=== PATIENT | female | born 1935 | race Caucasian/White ===

== ENCOUNTER 2022-01-11 09:38 | Inpatient (IN) | payer OTHER, BC ==
[2022-01-11] VITALS (7 sets, daily range): BP systolic 98–127; BP diastolic 61–74
[~2022-01-11] VITALS: Ht 162.6 cm; Wt 70.8 kg
--- NOTE | 2022-01-11 09:41 | NUR ---
FARHEEN CARLSON, VIA GURPORTER, TO BED 01.
--- NOTE | 2022-01-11 09:55 | NUR ---
86 y/o Female BIBA from s/p concerned neighbors found her on floor. Unknown last well time. Per amb, pt was subjectively hot and altered. Pt baseline is GCS 15, AOX4. Pt is currently non-verbal responsive to painful stimuli. Resp even and labored. Lung sounds C/D bilat. Abd soft and non-tender. + BS heard x 4. Rectal temp of [address] Diaz with cooling measures initiated. Throat noted with edema, soft to touch. Pmhx: hypothyroid Home meds: prednisone, levothyroxine, methotrexate Unknown allergies
[2022-01-11] MEDS ORDERED: ACETAMINOPHEN 325 MG SUPP RC ONE (09:59)
[2022-01-11] MEDS ORDERED: ACETAMINOPHEN 120 MG SUPP RC ONE (10:00)
[2022-01-11] MEDS ORDERED: NACL 0.9% 1,000 ML IV SCH (10:00)
[2022-01-11] MEDS ORDERED: LORazepam 2 MG/ML VIAL ONE (10:03)
[2022-01-11] MEDS ORDERED: LORazepam 2 MG/ML VIAL IVP ONE (10:05)
[2022-01-11 11:23] LABS: BASOPHILS % (AUTO) 0.2 % (0.0-2.0); HEMATOCRIT 42.5 % (36-48); HEMOGLOBIN 13.9 g/dL (12.0-16.0); LYMPHOCYTES # (AUTO) 0.4 K/uL (2.5-16.5); LYMPHOCYTES % (AUTO) 3.2 % (20.5-51.1); MEAN CORPUSCULAR HEMOGLOBIN 31 pg (27-31); MEAN CORPUSCULAR HGB CONC 33 g/dL (33-37); MEAN CORPUSCULAR VOLUME 93.3 fL (80-94); MONOCYTES # (AUTO) 0.8 K/uL (0.8-1.0); MONOCYTES % (AUTO) 6.2 % (1.7-9.3); NEUTROPHILS # (AUTO) 11.8 K/uL (1.8-7.7); NEUTROPHILS % (AUTO) 90.4 % (42.2-75.2); PLATELET COUNT (AUTO) 198 K/uL (140-450); RED BLOOD CELL COUNT(AUTO) 4.55 MIL/uL (4.20-5.40); RED CELL DISTRIBUTION WIDTH 14.3 % (11.6-13.7)
[2022-01-11] MEDS ORDERED: NACL 0.9% 1,000 ML IV ONE ×2 (11:35→12:10)
--- NOTE | 2022-01-11 11:37 | NUR ---
Dr Daiz made aware of B/P at this time. Pt remains in aFib in the 120s
[2022-01-11 11:38] LABS: PROTHROMBIN TIME 12.6 secs (10.8-13.4)
[2022-01-11] MEDS ORDERED: PIPERACILLIN/TAZOBACTAM 3.375 GM in DEXTROSE 5% 50 ML IV ONE (11:40)
[2022-01-11] MEDS ORDERED: PIPERACILLIN/TAZOBACTAM 3.375 GM VIAL IV ONE (11:41)
[2022-01-11 11:45] LABS: ALBUMIN 3.1 g/dL (3.4-5.0); ANION GAP 19.1 (8-16); ASPARTATE AMINOTRANSFERASE 59 U/L (15-37); CARBON DIOXIDE 22.5 mmol/L (21-32); CHLORIDE 107 mmol/L (98-107); CREATININE 1.2 mg/dL (0.6-1.3); GLUCOSE 106 mg/dL (74-106); POTASSIUM 3.6 mmol/L (3.5-5.1); SODIUM SERUM 145 mmol/L (136-145); TOTAL BILIRUBIN 0.9 mg/dL (0.0-1.0); UREA NITROGEN, BLOOD 21 mg/dL (7-18)
[2022-01-11] MEDS ORDERED: NOREPINEPHRINE 4 MG/4 ML VIAL IV ONE (12:05)
[2022-01-11] MEDS ORDERED: NOREPINEPHRINE 4 MG in DEXTROSE 5% 250 ML IV ONE (12:10)
[2022-01-11 12:39] LABS: APPEARANCE,URINE CLEAR (CLEAR); BILIRUBIN,URINE NEGATIVE (NEGATIVE); BLOOD, URINE 2+ (NEGATIVE); COLOR,URINE YELLOW (YELLOW); LEUKOCYTE ESTERASE ,URINE NEGATIVE (NEGATIVE); NITRITE, URINE NEGATIVE (NEGATIVE); UGLUCOSE NEGATIVE (NEGATIVE)
[2022-01-11 13:03] LABS: WBC,URINE 0-5 /HPF (0-5)
[2022-01-11] MEDS ORDERED: VITAMIN C PO (13:13)
[2022-01-11] MEDS ORDERED: LUTE1CAP5 PO (13:13)
[2022-01-11] MEDS ORDERED: MULTIVITAMIN PO (13:13)
[2022-01-11] MEDS ORDERED: TURMERIC PO (13:13)
[2022-01-11] MEDS ORDERED: LEVO0.155 PO (13:13)
[2022-01-11] MEDS ORDERED: METH10TA3 PO (13:13)
[2022-01-11] MEDS ORDERED: VITA1CAP42 PO (13:13)
[2022-01-11] MEDS ORDERED: PRED5TAB7 PO (13:13)
[2022-01-11] MEDS ORDERED: LIOT5TAB4 PO (13:13)
[2022-01-11] MEDS ORDERED: FOLIC ACID PO (13:13)
[2022-01-11] MEDS ORDERED: ELA50 PO (13:13)
[2022-01-11] MEDS ORDERED: HYDR200T5 PO (13:13)
[2022-01-11] MEDS ORDERED: [UNRECOGNIZED DRUG - OTHER] (13:13)
[2022-01-11] MEDS ORDERED: ASPI-1749 PO (13:13)
[2022-01-11] MEDS: NACL 0.9% 1,000 ML IV SCH (13:30)
--- NOTE | 2022-01-11 13:56 | NUR ---
Patient will be admitted to care of Dr Green. Admited to ICU. Will go to room 2. Belongings list completed. Report given to NOEMI Luciano.
[2022-01-11 14:15] LABS: MAGNESIUM 1.1 mg/dL (1.8-2.4); PHOSPHORUS 2.6 mg/dL (2.5-4.9)
[2022-01-11 14:17] LABS: PROTHROMBIN TIME 13.1 secs (10.8-13.4)
--- NOTE | 2022-01-11 14:20 | NUR ---
RECEIVED FROM ER IN [place] PT. IS SLEEPING BUT WAKE UP AND FOLLOW COMMAND WHEN CALLEDIV FLUID HAS TLC RT FEMORAL INFUSING LEVO AT 5MCG/MIN.SKIN DRY WARM COLOR PALE , MOVING ALL EXTREMITIES SLOWLY .NAVARRO CATH DRAIN CLEAR CARK MARY BETH URINR.
--- NOTE | 2022-01-11 14:36 | NUR ---
LAB CALL [id number] NOTIFIED DR CRUZ, ORDER RECEIVED.
[2022-01-11] MEDS ORDERED: LOVENOX 1MG/KG Q12H SUBQ SCH (15:20)
[2022-01-11] MEDS ORDERED: CLINICAL MONITORING MC PRN (15:25)
[2022-01-11] MEDS ORDERED: ENOXAPARIN 80 MG/0.8 ML SYR SUBQ SCH (15:30)
--- NOTE | 2022-01-11 15:30 | NUR ---
SEEN BY DR. CRUZ , ORDER RECEIVED,
--- NOTE | 2022-01-11 16:00 | NUR ---
SLEEING MOST OR THE TIME CONTINUE ON LEVOPHED IV DRIP 3MCG/MIN.
--- NOTE | 2022-01-11 19:12 | NUR ---
RECEIVED REPORT FROM DAY SHIFT RN MARISA. PT. WITH ALTERED LEVEL OF CONSCIOUSNESS. ON NASAL CANULA 2L. IV TO RIGHT FEMORAL CENTRAL LINE, PATENT AND INTACT INFUSING LEVOPHED AT 3 MCG/MIN AND NS AT 100 ML/HR. NAVARRO CATHETER DRAINING CLEAR YELLOW URINE. SKIN INTACT EXCEPT FOR BRUISES TO BILATERAL UPPER EXTREMITIES. PT. BEDLOCK AND PLACED IN COMFORTABLE POSITION. NO S/S OF PAIN. WILL CONT. TO MONITOR.
[2022-01-11] MEDS ORDERED: NOREPINEPHRINE 4 MG in DEXTROSE 5% 250 ML IV PRN (19:20)
--- NOTE | 2022-01-11 19:20 | NUR ---
REPORT GIVE TO LAURA FRANKLIN.
[2022-01-11] MEDS: PIPERACILLIN/TAZOBACTAM 3.375 GM in DEXTROSE 5% 50 ML IV SCH (20:51)
--- NOTE | 2022-01-11 21:45 | NUR ---
ENDORSED CARE AND REPORT GIVEN TO NOEMI SOSA FOR CONTINUITY OF CARE.
--- NOTE | 2022-01-11 21:45 | NUR ---
Assumed pt care report received from Jessika FRANKLIN.
--- NOTE | 2022-01-11 22:00 | NUR ---
On pt assessment, she was awake alert follows command answered all questions coherently oriented x3 pt's orientation to the unit immediate environment, she was not aware that she is addmited to the hospital also mentioned that she might have passed out. Education on care plan, she agreed and appreciates. Vitals signs stable on levophed drip titrated down to 1mcg/min afebrile, denies pain still AFIB on the monitor controlled rate in 70's O2 sat 100% on 2lnc. She moves all extremities to resistance but weaker in low extremities and stiffness as she said, assist with repositioning in bed HOB 30 degrees. IV site right groin dry and intact,and agrawal to gravity adequate urine output. PT is a fall risk bed rails up x2, bed in low position close to the nursing station, call light at reach will contnue q1 hour check fo pt's safety.
[2022-01-12] VITALS (23 sets, daily range): BP systolic 81–146; BP diastolic 40–84
[2022-01-12] MEDS: NACL 0.9% 1,000 ML IV SCH (01:29)
[2022-01-12 05:48] LABS: ANION GAP 12.4 (8-16); CARBON DIOXIDE 28.4 mmol/L (21-32); CHLORIDE 110 mmol/L (98-107); CREATININE 0.7 mg/dL (0.6-1.3); GLUCOSE 81 mg/dL (74-106); POTASSIUM 3.8 mmol/L (3.5-5.1); SODIUM SERUM 147 mmol/L (136-145); UREA NITROGEN, BLOOD 19 mg/dL (7-18)
[2022-01-12] MEDS: PIPERACILLIN/TAZOBACTAM 3.375 GM in DEXTROSE 5% 50 ML IV SCH ×3 (06:02→21:05)
--- NOTE | 2022-01-12 06:31 | NUR ---
As at this time pt awake alert worried about her appointment with her Rheumatoid artrthis doctor ongoing support to alleviates anxiety, passed swallow eval at the bedside ate Jello drank water no prblem encountered even ask if she is going to get food as ahe asked ARE THEY GOING TO FEED ME' order placed in for cardiac diet 2gm low sodium. All through the shift tolerated all treatments and care no problem vitals signs stable denies pain
--- NOTE | 2022-01-12 07:30 | NUR ---
SEEN AND EXAMINED BY DR CRUZ. ORDERS RECEIVED.
--- NOTE | 2022-01-12 07:40 | NUR ---
Change of shift report given to Tracy RN at the bedside for continuity of care as at this time pt awake alert vitals signs stable
--- NOTE | 2022-01-12 07:41 | NUR ---
RECEIVED BEDSIDE REPORT FROM SHEILA BELTRAN RN FOR CONTINUITY OF CARE. PT LYING IN THE BED, AAOX2, KARINRANNIE. ON 2L NC. FIRST DEGREE WITH PACS ON BEDSIDE MONITOR. R FEMORAL CENTRAL LINE IN PLACE INFUSING LEVOPHED AT 1 MCG/MIN AND NS AT 100 ML/H. RAC 18G IN PLACE. LAC 18G IN PLACE, AND LFA 20G IN PLACE. BOWEL SOUNDS ACTIVE. LAST BM MONDAY. FC TO GRAVITY, DRAINING CLEAR YELLOW URINE. MODERATE WEAKNESS. SKIN INTACT. W BRUISES TO BLE Addendum: 01/12/22 at 1134 by Jesi Leblacn RN ON STANDARD ISOLATION. CALL LIGHT WITHIN REACH. SAFETY PRECAUTIONS MET. INITIAL ASSESSMENT COMPLETE, WILL CONTINUE TO CLOSELY MONITOR.
[2022-01-12 07:49] LABS: BASOPHILS % (AUTO) 0.4 % (0.0-2.0); HEMATOCRIT 41.8 % (36-48); HEMOGLOBIN 13.6 g/dL (12.0-16.0); LYMPHOCYTES # (AUTO) 1.5 K/uL (2.5-16.5); LYMPHOCYTES % (AUTO) 14.1 % (20.5-51.1); MEAN CORPUSCULAR HEMOGLOBIN 32 pg (27-31); MEAN CORPUSCULAR HGB CONC 33 g/dL (33-37); MEAN CORPUSCULAR VOLUME 96.6 fL (80-94); MONOCYTES # (AUTO) 1.5 K/uL (0.8-1.0); MONOCYTES % (AUTO) 13.3 % (1.7-9.3); NEUTROPHILS # (AUTO) 7.9 K/uL (1.8-7.7); NEUTROPHILS % (AUTO) 72.2 % (42.2-75.2); PLATELET COUNT (AUTO) 116 K/uL (140-450); RED BLOOD CELL COUNT(AUTO) 4.33 MIL/uL (4.20-5.40); RED CELL DISTRIBUTION WIDTH 14.9 % (11.6-13.7); WHITE BLOOD COUNT (AUTO) 10.9 K/uL (4.8-10.8)
--- NOTE | 2022-01-12 08:00 | NUR ---
PT CAREGIVER, CORTEZ ENGEL, CALLED, UPDATED REGARDING PT CONDITION, ALL QUESTIONS ANSWERED. PT WANTS TO SPEAK WITH HER. UNIT MOBILE PHONE NOT FUNCTIONING AT THIS TIME. ENDORSED WHY WE ARE UNABLE TO USE MOBILE PHONE. VERBALIZED UNDERSTANDING.
[2022-01-12] MEDS ORDERED: predniSONE 20 MG TAB PO SCH (08:08)
--- NOTE | 2022-01-12 08:09 | NUR ---
PATIENT HAS BEEN SCREENED AND CATEGORIZED HIGH NUTRITION RISK. PATIENT WILL BE SEEN WITHIN 1-2 DAYS OF ADMISSION. DENNIS ONEAL RD
[2022-01-12] MEDS ORDERED: LEVOTHYROXINE 0.075 MG TAB PO SCH (08:10)
--- NOTE | 2022-01-12 08:20 | NUR ---
DR CHAIM ANGEL. Addendum: 01/12/22 at 1435 by Jesi Leblanc RN wrong time disregard
[2022-01-12] MEDS ORDERED: ENOXAPARIN 80 MG/0.8 ML SYR SUBQ SCH (09:00)
[2022-01-12] MEDS: METHYLPHENIDATE 10 MG TAB PO SCH (09:26)
[2022-01-12] MEDS: PANTOPRAZOLE 40 MG INJ VIAL IVP SCH (09:26)
[2022-01-12] MEDS: ASPIRIN 81 MG TAB.CHEW PO SCH (09:26)
[2022-01-12] MEDS: HYDROXYCHLOROQUINE 200 MG TAB PO SCH ×2 (09:26→20:59)
[2022-01-12] MEDS: ENOXAPARIN 80 MG/0.8 ML SYR SUBQ SCH ×2 (09:28→21:00)
--- NOTE | 2022-01-12 09:30 | NUR ---
PT EATING BREAKFAST, FINISHED 75%. SCHEDULED MEDS ADMINISTERED ORDERED. NADR, TOLERATED WELL. WILL CONTINUE TO CLOSELY MONITOR.
--- NOTE | 2022-01-12 12:15 | NUR ---
DR RUCKER ROUNDING AT BEDSIDE. NO NEW ORDERS.
[2022-01-12] MEDS: HYDROCORTISONE NA SUCC 100 MG/2 ML VIAL IV SCH ×2 (13:24→20:59)
--- NOTE | 2022-01-12 13:40 | NUR ---
WOUND CARE EVALUATION NOTES: REASON FOR EVALUATION: RIGHT BIG TOE WOUND WOUND ASSESSMENT COMPLETED ON THIS 86 Y/O FEMALE ADMITTED TO ICU FOR SEPTIC SHOCK. PAST MEDICAL HISTORY INCLUDES RH ARTHRITIS, HYPOTHYROIDISM. ALL ABOVE INFORMATION WAS OBTAINED FROM THE ADMISSION H&P. AAOX2, ABLE TO FOLLOW COMMANDS, ABLE TO TURN SELF WITH STANDBY ASSIST. PLAN OF WOUND CARE AND PRESSURE PREVENTATIVE MEASURES DISCUSSED WITH PATIENT AND PRIMARY RN. PATIENT ADMITTED WITH PRESSURE ULCER TO [facility] AND MULTIPLE SKIN TEARS COMORBIDITIES RELATED TO FURTHER SKIN BREAKDOWN SUCH IMPAIRED OR DECREASED MOBILITY AND DECREASED FUNCTIONAL ABILITY, LOW ALBUMIN LEVEL. INTEGUMENTARY: - RIGHT PLANTAR HALLUX (GREAT TOE) OPEN BLISTER 1.5 X 1.5 X 0 CM, NO DISCHARGE, NO ODOR. JES-WOUND INTACT. RECOMMENDATIONS: - RIGHT PLANTAR HALLUX (GREAT TOE) OPEN BLISTER: CLEANSE WITH NS, PAT DRY, APPLY VERSATEL DRESSING Q5D AND PRN IF SOILED. - OFFLOAD BILATERAL HEELS BY PLACING BILATERAL HEEL PROTECTORS. - TURN AND REPOSITION PATIENT Q2H TO LEFT AND RIGHT SIDE TO OFFLOAD SACRALCOCCYX. - ASSESS AND MONITOR SKIN CONDITION DURING POSITION CHANGE. PLEASE PAY ATTENTION TO SACRALCOCCYX AND HEELS. - KEEP SKIN DRY AND CLEAN AT ALL TIMES. - RD CONSULT RECOMMENDATIONS DISCUSSED WITH PRIMARY RN. WILL FOLLOW-UP PATIENT Q7-10 DAYS AND PRN. PLEASE CONTACT WOUND CARE NURSE FOR ANY CONCERNS AND CHANGES IN WOUND CONDITION.
--- NOTE | 2022-01-12 14:20 | NUR ---
DR MONAE ROUNDING AT BEDSIDE. ORDERS RECEIVED.
[2022-01-12] MEDS: AMIODARONE 200 MG TAB PO SCH ×2 (14:52→21:00)
[2022-01-12] MEDS: AMITRIPTYLINE 50 MG TAB PO SCH (17:19)
--- NOTE | 2022-01-12 19:26 | NUR ---
ENDORSED BEDSIDE REPORT TO MARIS BELTRAN RN FOR CONTINUITY OF CARE. PT VSS, NO ACUTE DISTRESS
--- NOTE | 2022-01-12 19:50 | NUR ---
RECEIVED PATIENT ON BED AWAKE, ALERT, ABLE TO MOVE LIMBS FREELY; BREATHING EVEN AND AND UNLABORED AT 2 LITER 02/NC. S02 100%. CARDIACSCOPE SHOWS ON SINUS TACHY HR 126/MIN. IVF IN PROGRESS NORMAL SALINE AT 100 ML/HR VIA CENTRAL LINE ON RIGHT FEMORAAL; INTACT. ABDOMEN IS SOFT, ACTIVE BOWEL SOUNDS. WITH NAVARRO CATH IN SITU TO GRAVITY DRAINAGE BAG DRAINING TO CLEAR DEEP MARY BETH COLOR URINE OUTPUT; INTACT. NOTED WITH BRUISE ON ALL EXTREMITIES ESPECIALLY ON BOTH UPPER EXTREMITIES.
--- NOTE | 2022-01-12 21:00 | NUR ---
BP LOW 74/50; LEVOPHED RE STARTED AT 2 MCG/MIN; V/S MONITORED CLOSELY.
[2022-01-13] VITALS (16 sets, daily range): BP systolic 91–125; BP diastolic 53–77
--- NOTE | 2022-01-13 04:10 | NUR ---
BP OBSERVED TO BE WITHIN NORMAL RANGE SO LEVOPHED DRIP HOLD AND CLOSE MONITORING CONTINUED.
--- NOTE | 2022-01-13 04:30 | NUR ---
HAD BM TO MODERATE AMOUNT OF SOFT BROWN STOOL; MORNING BED BATH DONE; KEPT COMFORTABLE.
[2022-01-13] MEDS: HYDROCORTISONE NA SUCC 100 MG/2 ML VIAL IV SCH ×3 (05:08→21:50)
[2022-01-13] MEDS: PIPERACILLIN/TAZOBACTAM 3.375 GM in DEXTROSE 5% 50 ML IV SCH ×3 (05:09→21:50)
[2022-01-13 06:20] LABS: BASOPHILS % (AUTO) 0.1 % (0.0-2.0); HEMATOCRIT 38.4 % (36-48); HEMOGLOBIN 12.8 g/dL (12.0-16.0); LYMPHOCYTES # (AUTO) 0.7 K/uL (2.5-16.5); LYMPHOCYTES % (AUTO) 4.9 % (20.5-51.1); MEAN CORPUSCULAR HEMOGLOBIN 31 pg (27-31); MEAN CORPUSCULAR HGB CONC 33 g/dL (33-37); MEAN CORPUSCULAR VOLUME 93.5 fL (80-94); MONOCYTES # (AUTO) 0.6 K/uL (0.8-1.0); MONOCYTES % (AUTO) 4.1 % (1.7-9.3); NEUTROPHILS # (AUTO) 12.3 K/uL (1.8-7.7); NEUTROPHILS % (AUTO) 90.9 % (42.2-75.2); PLATELET COUNT (AUTO) 171 K/uL (140-450); RED BLOOD CELL COUNT(AUTO) 4.11 MIL/uL (4.20-5.40); RED CELL DISTRIBUTION WIDTH 14.6 % (11.6-13.7); WHITE BLOOD COUNT (AUTO) 13.5 K/uL (4.8-10.8)
[2022-01-13] MEDS ORDERED: LEVOTHYROXINE 0.075 MG TAB PO SCH (06:30)
[2022-01-13 06:50] LABS: ANION GAP 9.3 (8-16); CHLORIDE 109 mmol/L (98-107); CREATININE 0.6 mg/dL (0.6-1.3); GLUCOSE 152 mg/dL (74-106); POTASSIUM 3.3 mmol/L (3.5-5.1); SODIUM SERUM 142 mmol/L (136-145); UREA NITROGEN, BLOOD 19 mg/dL (7-18)
--- NOTE | 2022-01-13 07:10 | NUR ---
Opening Received report on pt. Pt AAOx3, forgetful. Pt states no pain or distress, on 2L O2 via nasal cannula. IV SL left AC, intact, patent. Pt with right femoral central line with NS 100 ml/hr. Cummins in place draining braulio urine. Reoriented pt to situation.
--- NOTE | 2022-01-13 08:00 | NUR ---
Dr. Nicolas rounding on pt
[2022-01-13] MEDS: PANTOPRAZOLE 40 MG INJ VIAL IVP SCH (08:17)
[2022-01-13] MEDS: ASPIRIN 81 MG TAB.CHEW PO SCH (08:18)
[2022-01-13] MEDS: HYDROXYCHLOROQUINE 200 MG TAB PO SCH ×2 (08:19→21:50)
[2022-01-13] MEDS: AMIODARONE 200 MG TAB PO SCH ×2 (08:19→21:50)
[2022-01-13] MEDS: METHYLPHENIDATE 10 MG TAB PO SCH (08:20)
[2022-01-13] MEDS: ENOXAPARIN 80 MG/0.8 ML SYR SUBQ SCH ×2 (08:21→21:50)
--- NOTE | 2022-01-13 08:30 | NUR ---
Nakia Limon, pt's contact, at bedside with pt, states to speak with social science research assistant. Attempted to reach, left voicemail with social work/case management and informed Nakia.
[2022-01-13] MEDS ORDERED: predniSONE 5 MG TAB PO SCH (09:00)
--- NOTE | 2022-01-13 10:45 | NUR ---
DC PLANNING SW OUTREACHED TO PATIENTS CAREGIVER, CORTEZ [phone] TO GATHER COLLATERAL INFORMATION. OCRTEZ REPORTS PATIENT RESIDES ALONE AT THE ADDRESS LISTED ON FILE. CORTEZ REPORTS PATIENT HAS LIMITED FAMILY SUPPORT AND REPORTS THAT SHE PROVIDES CARE FOR PATIENT. PT IS REPORTED TO NOT HAVE AD IN PLACE HOWEVER, CORTEZ REPORTS SHE AND PATIENT HAVE TALKED ABOUT ARRANGING AND MAKING EFFORTS TO COMPLETE AD. SW TO PROVIDE PATIENT AND CORTEZ WITH AD AT NEXT VISIT. CORTEZ REPORTS PATIENT IS CONSISTENT WITH MEETING WITH PCP, LAST VISIT; 12/27 WITH NEXT APPT SCHEDULED FOR 01/21. DAWNA MEETS WITH COLOR MAKER DR ALLEN. PATIENT IS MEDICATION COMPLIANT AND CORTEZ DENIES BARRIERS IN ACCESSING NEEDED MEDICATIONS. PATIENT IS REPORTED TO POINTER HELPER MEDICATION AT [facility] IN [place], WHEN NEEDED. PATIENT IS REPORTEED TO BE AMBULATORY WITH DME ASSISTANCE; FWW AND BATHCHAIR. PATIENT HAS ABILITY TO COMPLETE ADL'S. CORTEZ REPORTS TENTATIVE DC PLAN IS FOR PATIENT TO RETURN HOME WHEN MEDICALLY STABLE.
--- NOTE | 2022-01-13 14:07 | NUR ---
Echocardiogram being done at bedside
--- NOTE | 2022-01-13 14:18 | NUR ---
01/13/22 RD INITIAL ASSESSMENT COMPLETED PLEASE REFER TO NUTRITION ASSESSMENT UNDER CARE ACTIVITY FOR ESTIMATED NUTRITIONAL NEEDS. 1. CONTINUE CARDIAC/ NA 2GM DIET TOLERATED 2. WILL MONITOR NUTRITION RELATED LAB VALUES. 3. RD TO FOLLOW-UP 3-5 DAYS, MODERATE RISK REVIEWED BY DENNIS ONEAL RD
[2022-01-13] MEDS ORDERED: POTASSIUM CHLORIDE 10 MEQ TABER PO PRN (14:40)
[2022-01-13] MEDS ORDERED: CALCIUM GLUCONATE 10% 1,000 MG in NACL 0.9% 50 ML IV SCH (15:00)
[2022-01-13] MEDS: AMITRIPTYLINE 50 MG TAB PO SCH (16:09)
--- NOTE | 2022-01-13 18:50 | NUR ---
Closing Pt up in bed, refusing dinner, states "too much to eat" and is full. Pt states no distress or pain. Will endorse plan of care.
--- NOTE | 2022-01-13 19:15 | NUR ---
RECEIVED ENDORSEMENT FROM DAY SHIFT (NOEMI WELLS).
--- NOTE | 2022-01-13 19:40 | NUR ---
PATIENT TO TRANSFER TO TELE, RM 112A. CALLED TO GIVE REPORT TO EMERY.
--- NOTE | 2022-01-13 21:20 | NUR ---
RECEIVED PATIENT FROM ICU AAOX3 VERBALLY RESPONSIVE. O2 AT 2L NC SATING 97%. NO SOB. RESPIRATION EVEN UNLABORED. TRANSFERRED TO BED SAFELY AND COMFORTABLY. ALL SAFETY PRECAUTIONS ARE IN PLACE. WHEELS OF BED LOCKED. NAVARRO CATHETER IN PLACE DRAINING DARK MARY BETH URINE. CALL LIGHT WITHIN REACH. CENTRAL CATHETER TRIPLE LUMEN ON THE RIGHT FEMORAL. NO S/S OF INFECTION NOTED. WILL CONTINUE TO MONITOR.
--- NOTE | 2022-01-13 21:30 | NUR ---
PATIENT TRANSFERRED FROM ICU, BED 3 TO [facility] RM 112A.
--- NOTE | 2022-01-13 21:50 | NUR ---
SCHEDULED MEDICATIONS ADMINISTERED PER MD ORDER. TOLERATED WELL.
[2022-01-14] VITALS: BP 103/62
--- NOTE | 2022-01-14 02:45 | NUR ---
PATIENT SLEEPING WITH SYMMETRICAL RISE AND FALL OF THE CHEST. CALL LIGHT WITHIN REACH.
[2022-01-14] MEDS: HYDROCORTISONE NA SUCC 100 MG/2 ML VIAL IV SCH ×3 (04:36→20:13)
[2022-01-14] MEDS: PIPERACILLIN/TAZOBACTAM 3.375 GM in DEXTROSE 5% 50 ML IV SCH ×3 (04:37→20:14)
[2022-01-14 07:08] LABS: BASOPHILS % (AUTO) 0.1 % (0.0-2.0); HEMATOCRIT 37.1 % (36-48); HEMOGLOBIN 12.2 g/dL (12.0-16.0); LYMPHOCYTES # (AUTO) 0.5 K/uL (2.5-16.5); LYMPHOCYTES % (AUTO) 3.4 % (20.5-51.1); MEAN CORPUSCULAR HEMOGLOBIN 31 pg (27-31); MEAN CORPUSCULAR HGB CONC 33 g/dL (33-37); MEAN CORPUSCULAR VOLUME 93.1 fL (80-94); MONOCYTES # (AUTO) 0.6 K/uL (0.8-1.0); MONOCYTES % (AUTO) 3.9 % (1.7-9.3); NEUTROPHILS # (AUTO) 13.5 K/uL (1.8-7.7); NEUTROPHILS % (AUTO) 92.6 % (42.2-75.2); PLATELET COUNT (AUTO) 173 K/uL (140-450); RED BLOOD CELL COUNT(AUTO) 3.98 MIL/uL (4.20-5.40); RED CELL DISTRIBUTION WIDTH 14.5 % (11.6-13.7); WHITE BLOOD COUNT (AUTO) 14.6 K/uL (4.8-10.8)
--- NOTE | 2022-01-14 07:15 | NUR ---
PATIENT STABLE. BEDSIDE REPORT GIVEN TO MORNING SHIFT NURSE FOR CONTINUITY OF CARE.
--- NOTE | 2022-01-14 07:16 | NUR ---
RECEIVED REPORT FROM TURN DOWN ATTENDANT NURSE FOR CONTINUITY OF CARE. PT AWAKE, IN BED. A&O4, ABLE TO COMMUNICATE NEEDS. RESPIRATIONS EVEN AND UNLABORED ON 2L NC. NO DISTRESS NOTED. PT ON ELDERLY SITTER. NAVARRO CATHETER INTACT. IV SITE ON LAC 20G, SL AND RIGHT FEMORAL X3 LUMEN, SL. CALL LIGHT WITHIN REACH. SAFETY PRECAUTIONS IN PLACE. WILL CONTINUE TO MONITOR.
[2022-01-14 07:22] LABS: ANION GAP 9.7 (8-16); CARBON DIOXIDE 26.9 mmol/L (21-32); CHLORIDE 111 mmol/L (98-107); CREATININE 0.7 mg/dL (0.6-1.3); GLUCOSE 128 mg/dL (74-106); POTASSIUM 3.6 mmol/L (3.5-5.1); SODIUM SERUM 144 mmol/L (136-145); UREA NITROGEN, BLOOD 19 mg/dL (7-18)
[2022-01-14 08:00] VITALS: BP 109/69
--- NOTE | 2022-01-14 08:30 | NUR ---
PT RECEIVED FROM [facility] RT ON SUPPLEMENTAL OXYGEN OF 2 LITERS NASAL CANNULA, PHYSICAL THERAPY SEEN AT BEDSIDE, PT REPOSITIONED BACK INTO BED AND SATING 100% ON 2L NC, PT WAS SEEN IN NO RESPIRATORY DISTRESS AND WILL CONTINUE TO MONITOR.
[2022-01-14] MEDS: METHYLPHENIDATE 10 MG TAB PO SCH (10:03)
[2022-01-14] MEDS: HYDROXYCHLOROQUINE 200 MG TAB PO SCH ×2 (10:03→20:12)
[2022-01-14] MEDS: ASPIRIN 81 MG TAB.CHEW PO SCH (10:03)
[2022-01-14] MEDS: AMIODARONE 200 MG TAB PO SCH ×2 (10:04→20:13)
[2022-01-14] MEDS: PANTOPRAZOLE 40 MG INJ VIAL IVP SCH (10:05)
[2022-01-14] MEDS: ENOXAPARIN 80 MG/0.8 ML SYR SUBQ SCH (10:05)
--- NOTE | 2022-01-14 10:12 | NUR ---
ADMINISTERED SCHEDULED MORNING MEDS. PT TEACHING ABOUT MEDS GIVEN. PT VERBALIZED UNDERSTANDING. IV MEDS GIVEN BY NOEMI DENG. PT TOLERATED WELL. CALL LIGHT WITHIN REACH. SAFETY PRECAUTIONS IN PLACE. WILL CONTINUE TO MONITOR.
--- NOTE | 2022-01-14 11:51 | NUR ---
FEMORAL CENTRAL LINE REMOVED BY NOEMI DENG. PT TOLERATED WELL. WILL CONTINUE TO MONITOR.
[2022-01-14 12:00] VITALS: BP 86/49
--- NOTE | 2022-01-14 12:00 | NUR ---
BP 86/49. DR JARA IN MST, INFORMED BOUT PT BP. ORDERED MIDODRINE AND IVF. ORDERS CARRIED OUT. WILL CONTINUE TO MONITOR.
--- NOTE | 2022-01-14 12:10 | NUR ---
PT SEEN IN NO RESPIRATORY DISTRESS, PT SATING 95% ON 2L NC. WILL CONTINUE TO MONITOR.
--- NOTE | 2022-01-14 12:29 | NUR ---
PHYSICAL THERAPY CO-SIGN The Physical Therapy Progress Notes documented by Claims Administrator have been reviewed. Reviewed/Co-Signed by: Calista Antony Documentation Done by: OTF JACOME PTA Addendum: 01/14/22 at 1230 by Calista Antony PT Amended: Links added.
[2022-01-14] MEDS: MIDODRINE 5 MG TAB PO SCH ×2 (12:30→16:36)
[2022-01-14] MEDS: NACL 0.9% 1,000 ML IV SCH (12:38)
--- NOTE | 2022-01-14 14:02 | NUR ---
DID ROUNDS. PT SITTING IN BED. NO DISTRESS NOTED. NO COMPLAINTS OF PAIN. NO COMPLAINTS OF DIZZINESS, SOB. CALL LIGHT WITHIN REACH. SAFETY PRECAUTIONS IN PLACE. WILL CONTINUE TO MONITOR.
[2022-01-14 16:00] VITALS: BP 109/68
[2022-01-14] MEDS: AMITRIPTYLINE 50 MG TAB PO SCH (16:37)
--- NOTE | 2022-01-14 16:40 | NUR ---
ADMINISTER SCHEDULED MEDS. PT TEACHING ABOUT MEDS GIVEN. PT VERBALIZED UNDERSTANDING. WILL CONTINUE TO MONITOR.
--- NOTE | 2022-01-14 18:52 | NUR ---
PT SITTING IN BED, EATING DINNER. NO DISTRESS NOTED. NO COMPLAINTS OF PAIN. PT IS STABLE. WILL ENDORSE TO PIGS FEET CLEANER NURSE.
--- NOTE | 2022-01-14 19:10 | NUR ---
ENDORSED PT TO HOUSE PIPING INSPECTOR NURSE FOR CONTINUITY OF CARE. ALL NEEDS MET THROUGHOUT SHIFT. PT IS STABLE.
--- NOTE | 2022-01-14 19:15 | NUR ---
RECEIVED PATIENT IN BED, AWAKE,ALERT AND ORIENTED X 4. DENIES PAIN. DENIES SHORTNESS OF BREATH. SKIN WARM AND TO TOUCH. IVF OF NS AT 40 ML/HE INFUSING WELL IN THE LEFT AC, WITH CLEAN DRY AND INTACT DRESSING, NO REDNESS NOR SWELLING NOTED. BED IN THE LOWEST AND LOCKED POSITION FOR SAFETY, CALL LIGHT IN REACH, INSTRUCTED TO CALL IF ASSISTANCE IS NEEDED.
[2022-01-14 20:00] VITALS: BP 96/57
[2022-01-14] MEDS: APIXABAN 2.5 MG TAB PO SCH (20:13)
--- NOTE | 2022-01-14 20:14 | NUR ---
DUE MEDICATIONS GIVEN ORDERED, TOLERATED WELL.
--- NOTE | 2022-01-14 22:30 | NUR ---
PROVIDED BLANKET PER PATIENT'S REQUEST. MADE COMFORTABLE. CALL LIGHT IN REACH.
[2022-01-15] VITALS (7 sets, daily range): BP systolic 97–128; BP diastolic 49–73
--- NOTE | 2022-01-15 00:22 | NUR ---
PATIENT ASLEEP. NO S/SX OF PAIN NOR DISCOMFORT. CALL LIGHT IN REACH.
--- NOTE | 2022-01-15 02:28 | NUR ---
PATIENT ASLEEP. BREATHING EVEN AND UNLABORED. CALL LIGHT WITHIN REACH.
[2022-01-15] MEDS: HYDROCORTISONE NA SUCC 100 MG/2 ML VIAL IV SCH ×3 (04:10→20:10)
[2022-01-15] MEDS: PIPERACILLIN/TAZOBACTAM 3.375 GM in DEXTROSE 5% 50 ML IV SCH ×3 (04:11→20:12)
--- NOTE | 2022-01-15 05:06 | NUR ---
PATIENT HAD A MODERATE SOFT BROWN STOOL, AM CARE RENDERED. MADE COMFORTABLE IN BED. PATIENT APPRECIATIVE OF CARE.
--- NOTE | 2022-01-15 06:21 | NUR ---
PATIENT ASLEEP. ALL NEEDS ATTENDED TO. NO DISTRESS NOTED. SAFETY PRECAUTIONS MAINTAINED DURING THE SHIFT, CALL LIGHT REMAINED WITHIN REACH.
--- NOTE | 2022-01-15 07:05 | NUR ---
REPORT GIVEN TO AM NURSE FOR CONTINUITY OF CARE.
--- NOTE | 2022-01-15 07:06 | NUR ---
RECEIVED REPORT FROM DEVELOPER ADVOCATE NURSE FOR CONTINUITY OF CARE. PT SLEEPING IN BED, EASILY AROUSABLE BY VERBAL STIMULI. A&O4, ABLE TO COMMUNICATE NEEDS. ON GENERAL ASSIGNMENT REPORTER. RESPIRATIONS EVEN AND UNLABORED ON 2L NC. NAVARRO CATHETER IN PLACE, INTACT. IV SITE ON LAC 20G, INFUSING NS AT 40ML/HR. CALL LIGHT WITHIN REACH. SAFETY PRECAUTIONS IN PLACE. WILL CONTINUE TO MONITOR.
[2022-01-15 07:30] LABS: ANION GAP 9.7 (8-16); CARBON DIOXIDE 27.8 mmol/L (21-32); CHLORIDE 109 mmol/L (98-107); CREATININE 0.7 mg/dL (0.6-1.3); GLUCOSE 121 mg/dL (74-106); POTASSIUM 3.5 mmol/L (3.5-5.1); SODIUM SERUM 143 mmol/L (136-145); UREA NITROGEN, BLOOD 23 mg/dL (7-18)
[2022-01-15 07:52] LABS: BASOPHILS % (AUTO) 0.1 % (0.0-2.0); HEMATOCRIT 36.5 % (36-48); HEMOGLOBIN 12.1 g/dL (12.0-16.0); LYMPHOCYTES # (AUTO) 0.6 K/uL (2.5-16.5); LYMPHOCYTES % (AUTO) 4.5 % (20.5-51.1); MEAN CORPUSCULAR HEMOGLOBIN 31 pg (27-31); MEAN CORPUSCULAR HGB CONC 33 g/dL (33-37); MEAN CORPUSCULAR VOLUME 93.1 fL (80-94); MONOCYTES # (AUTO) 0.5 K/uL (0.8-1.0); MONOCYTES % (AUTO) 4.3 % (1.7-9.3); NEUTROPHILS # (AUTO) 11.1 K/uL (1.8-7.7); NEUTROPHILS % (AUTO) 91.1 % (42.2-75.2); PLATELET COUNT (AUTO) 192 K/uL (140-450); RED BLOOD CELL COUNT(AUTO) 3.92 MIL/uL (4.20-5.40); RED CELL DISTRIBUTION WIDTH 14.8 % (11.6-13.7); WHITE BLOOD COUNT (AUTO) 12.1 K/uL (4.8-10.8)
[2022-01-15] MEDS: AMIODARONE 200 MG TAB PO SCH ×2 (09:38→20:12)
[2022-01-15] MEDS: METHYLPHENIDATE 10 MG TAB PO SCH (09:38)
[2022-01-15] MEDS: MIDODRINE 5 MG TAB PO SCH ×3 (09:39→18:24)
[2022-01-15] MEDS: APIXABAN 2.5 MG TAB PO SCH ×2 (09:40→20:11)
[2022-01-15] MEDS: HYDROXYCHLOROQUINE 200 MG TAB PO SCH ×2 (09:42→20:10)
--- NOTE | 2022-01-15 09:46 | NUR ---
ADMINISTERED SCHEDULED MORNING MEDS. PT TEACHING ABOUT MEDS GIVEN. PT VERBALIZED UNDERSTANDING. WILL CONTINUE TO MONITOR.
[2022-01-15] MEDS: PANTOPRAZOLE 40 MG INJ VIAL IVP SCH (10:40)
--- NOTE | 2022-01-15 11:15 | NUR ---
IV MED ADMINISTERED BY NOEMI DENG. WILL CONTINUE TO MONITOR.
[2022-01-15] MEDS: NACL 0.9% 1,000 ML IV SCH (12:05)
--- NOTE | 2022-01-15 12:24 | NUR ---
IV FLUID BAG STILL HAS APPROX 400ML. INFUSING AT 40ML/HR.
--- NOTE | 2022-01-15 13:34 | NUR ---
ADMINISTERED SCHEDULED MED. IV MEDS ADMINISTERED BY NOEMI DENG. WILL CONTINUE TO MONITOR.
[2022-01-15] MEDS ORDERED: AMIO200T10 PO (14:16)
[2022-01-15] MEDS ORDERED: AMOX-999 PO (14:16)
[2022-01-15] MEDS ORDERED: PRO5 PO (14:16)
[2022-01-15] MEDS ORDERED: APIX2.5 PO (14:16)
--- NOTE | 2022-01-15 15:45 | NUR ---
CALLED PT CAREGIVER. CAREGIVER CAN'T PICK-UP PT TODAY BECAUSE SHE'S OUT OF WAY. DR JARA AT BEDSIDE. MADE AWARE. OK TO DC PT TOMORROW MORNING.
[2022-01-15] MEDS: AMITRIPTYLINE 50 MG TAB PO SCH (18:24)
--- NOTE | 2022-01-15 18:27 | NUR ---
ADMINISTERED SCHEDULED MEDS. PT TEACHING ABOUT MEDS GIVEN. PT VERBALIZED UNDERSTANDING. PT SITTING COMFORTABLY IN BED, EATING DINNER. NO DISTRESS NOTED. CALL LIGHT WITHIN REACH. SAFETY PRECAUTIONS IN PLACE. PT REMAINED CLEAN AND DRY THROUGHOUT SHIFT. WILL CONTINUE TO MONITOR.
--- NOTE | 2022-01-15 19:37 | NUR ---
ENDORSED PT TO BUSINESS SEGMENT MANAGER NURSE FOR CONTINUITY OF CARE. ALL NEEDS MET THROUGHOUT SHIFT. PT IS STABLE.
--- NOTE | 2022-01-15 19:40 | NUR ---
REPORT GIVEN BY AM NURSE, PATIENT IS AWAKE, ALERT AND ORIENTED. DENIES PAIN. NO ACUTE RESPIRATORY DISTRESS NOTED. SKIN WARM AND DRY TO TOUCH. IVF OF NS AT 40 ML/HR INFUSING WELL ORDERED. BED IN THE LOWEST AND LOCKED POSITION FOR SAFETY, CALL LIGHT IN REACH, INSTRUCTED TO CALL IF ASSISTANCE IS NEEDED.
--- NOTE | 2022-01-15 20:10 | NUR ---
DUE MEDICATIONS GIVEN ORDERED. MADE PT COMFORTABLE IN BED.
[2022-01-16] VITALS: BP 114/65
--- NOTE | 2022-01-16 | NUR ---
VITAL SIGNS TAKEN AND DOCUMENTED. PATIENT ASLEEP, EASILY AROUSABLE. DENIES PAIN. CALL LIGHT IN REACH.
[2022-01-16] MEDS: NACL 0.9% 1,000 ML IV SCH (01:44)
--- NOTE | 2022-01-16 02:24 | NUR ---
ROUNDING DONE. PATIENT ASLEEP. NOTED RISE AND FALL OF THE CHEST. NO ACUTE RESPIRATORY DISTRESS NOTED.
--- NOTE | 2022-01-16 03:35 | NUR ---
PATIENT HAD A MODERATE AMOUNT OF SOFT BROWN STOOL, AM CARE RENDERED. PULLED UP AND POSITIONED FOR COMFORT. HEAD OF TH BED ELEVATED. WARM BLANKETS PROVIDED.
[2022-01-16] MEDS: HYDROCORTISONE NA SUCC 100 MG/2 ML VIAL IV SCH (04:40)
[2022-01-16] MEDS: PIPERACILLIN/TAZOBACTAM 3.375 GM in DEXTROSE 5% 50 ML IV SCH (04:40)
--- NOTE | 2022-01-16 06:27 | NUR ---
PATIENT ASLEEP. NO DISTRESS NOTED. ALL NEEDS ATTENDED TO. SAFETY PRECAUTIONS MAINTAINED DURING THE SHIFT, CALL LIGHT REMAINED WITHIN REACH.
[2022-01-16 06:52] LABS: BASOPHILS % (AUTO) 0.1 % (0.0-2.0); HEMATOCRIT 38.4 % (36-48); HEMOGLOBIN 12.8 g/dL (12.0-16.0); LYMPHOCYTES # (AUTO) 0.7 K/uL (2.5-16.5); MEAN CORPUSCULAR HEMOGLOBIN 31 pg (27-31); MEAN CORPUSCULAR HGB CONC 33 g/dL (33-37); MEAN CORPUSCULAR VOLUME 93.2 fL (80-94); MONOCYTES # (AUTO) 0.6 K/uL (0.8-1.0); MONOCYTES % (AUTO) 4.9 % (1.7-9.3); NEUTROPHILS # (AUTO) 10.5 K/uL (1.8-7.7); PLATELET COUNT (AUTO) 212 K/uL (140-450); RED BLOOD CELL COUNT(AUTO) 4.12 MIL/uL (4.20-5.40); RED CELL DISTRIBUTION WIDTH 14.9 % (11.6-13.7); WHITE BLOOD COUNT (AUTO) 11.8 K/uL (4.8-10.8)
--- NOTE | 2022-01-16 07:00 | NUR ---
REPORT GIVEN TO AM NURSE FOR CONTINUITY OF CARE.
[2022-01-16 07:04] LABS: ANION GAP 8.2 (8-16); CARBON DIOXIDE 29.3 mmol/L (21-32); CHLORIDE 109 mmol/L (98-107); CREATININE 0.8 mg/dL (0.6-1.3); GLUCOSE 124 mg/dL (74-106); POTASSIUM 3.5 mmol/L (3.5-5.1); SODIUM SERUM 143 mmol/L (136-145); UREA NITROGEN, BLOOD 27 mg/dL (7-18)
--- NOTE | 2022-01-16 07:05 | NUR ---
RECEIVED REPORT FROM CLERICAL WAREHOUSEMAN NURSE FOR CONTINUITY OF CARE. PT AWAKE IN BED. A&O4, ABLE TO COMMUNICATE NEEDS. RESPIRATIONS EVEN AND UNLABORED ON 2L NC. NAVARRO CATHETER IN PLACE, INTACT. IV SITE ON LAC 20G, INFUSING NS AT 40ML/HR. CALL LIGHT WITHIN REACH. SAFETY PRECAUTIONS IN PLACE. WILL CONTINUE TO MONITOR.
[2022-01-16 07:49] LABS: LYMPHOCYTES % (AUTO) 5.6 % (20.5-51.1); NEUTROPHILS % (AUTO) 89.4 % (42.2-75.2)
[2022-01-16 08:00] VITALS: BP 118/65
[2022-01-16] MEDS: PANTOPRAZOLE 40 MG INJ VIAL IVP SCH (08:36)
[2022-01-16] MEDS: APIXABAN 2.5 MG TAB PO SCH (08:41)
[2022-01-16] MEDS: AMIODARONE 200 MG TAB PO SCH (08:42)
[2022-01-16] MEDS: METHYLPHENIDATE 10 MG TAB PO SCH (08:42)
[2022-01-16] MEDS: HYDROXYCHLOROQUINE 200 MG TAB PO SCH (08:42)
[2022-01-16] MEDS: MIDODRINE 5 MG TAB PO SCH (08:42)
--- NOTE | 2022-01-16 08:57 | NUR ---
PT FOR DC HOME. PT CAREGIVER, CORTEZ AT BEDSIDE TO PICK-UP PT. PT REQUESTED TO HAVE HER MEDS TAKEN BEFORE LEAVING. ALL SCHEDULED MEDS ADMINISTERED. V/S 18/65, 18, 73, 97.8, 97% AT RA. REMOVED NAVARRO CATHETER INTACT. REMOVED IV CATHETER INTACT. DISCHARGE PAPER DISCUSSED WITH THE PT. PT VERBALIZED UNDERSTANDING. PT GETTING READY TO GET DRESSED. PT IS STABLE.
--- NOTE | 2022-01-16 09:15 | NUR ---
PT DC HOME, WHEELED TO FRONT LOBBY BY DIRECT CARE STAFFER VIA WHEELCHAIR. ALL BELONGINGS TAKEN UPON DC. PT IS STABLE.
== END 2022-01-16 09:05 | disposition home or self-care (01) | DRG 871 ==
LOC: MED 09:38 → MIC 12:41 → MTU 01-13 21:22
PROVIDERS: ADMIT Student in an Organized Health Care Education/Training Program; ATTEND Student in an Organized Health Care Education/Training Program
PROC: 06HY33Z Insertion of Infusion Device into Lower Vein, Percutaneous Approach (ICD-10-PCS; principal; 2022-01-11)
PROC: B54BZZA Ultrasonography of Right Lower Extremity Veins, Guidance (ICD-10-PCS; 2022-01-11)
DX: A41.9 Sepsis, unspecified organism (principal); G93.41 Metabolic encephalopathy; I21.4 Non-ST elevation (NSTEMI) myocardial infarction; R65.21 Severe sepsis with septic shock; J69.0 Pneumonitis due to inhalation of food and vomit; E87.2 Acidosis; E44.1 Mild protein-calorie malnutrition; M62.82 Rhabdomyolysis; E87.0 Hyperosmolality and hypernatremia; G93.40 Encephalopathy, unspecified; E87.6 Hypokalemia; I35.0 Nonrheumatic aortic (valve) stenosis; E05.90 Thyrotoxicosis, unspecified without thyrotoxic crisis or storm; I48.0 Paroxysmal atrial fibrillation; E86.0 Dehydration; Z20.822 Contact with and (suspected) exposure to COVID-19; M06.9 Rheumatoid arthritis, unspecified; E03.9 Hypothyroidism, unspecified; E83.42 Hypomagnesemia; E83.51 Hypocalcemia; Z68.26 Body mass index [BMI] 26.0-26.9, adult; Z79.01 Long term (current) use of anticoagulants; R40.2423 Glasgow coma scale score 9-12, at hospital admission
CPT/HCPCS: 36415; 36556; 36600; 70450; 71045; 80048; 80053; 81001; 82150; 82550; 82553; 82803; 83605; 83690; 83735; 83880; 84100; 84439; 84443; 84481; 84484; 85025; 85610; 85730; 87040; 87081; 92526; 93005; 93880; 96361; 96365; 96375; 97110; 97112; 97116; 97163-GP; 97530; 99291; C9113; J0610; J1650; J1720; J2060; J2543; J3490; J7060; J7512; Q0092